=== PATIENT | female | born 1945 | race Two or more races ===

== ENCOUNTER 2023-06-13 17:43 | Inpatient (IN) | payer OTHER ==
[~2023-06-13] VITALS: Ht 165.1 cm; Wt 87.9 kg
[2023-06-13 18:16] LABS: Basophils # (auto) 0 10 ^3/uL (0-0.2); Basophils % (auto) 0.3 % (0.0-2.0); Eosinophils # (auto) 0.2 10 ^3/uL (0-0.8); Eosinophils % (auto) 2.5 % (0.0-7.0); Hematocrit 39.5 % (36.0-46.0); Hemoglobin 12.7 g/dL (12.2-16.2); Lymphocytes # (auto) 1.9 10 ^3/uL (0.4-5.4); Mean Corpuscular Hemoglobin 28.5 pg (28.0-32.0); Mean Corpuscular Hgb Conc. 32.1 g/dL (32.0-36.0); Mean Corpuscular Volume 88.8 fL (80.0-100.0); Monocytes # (auto) 0.4 10 ^3/uL (0-1.3); Monocytes % (auto) 4.9 % (0.0-12.0); Neutrophils # (auto) 6.4 10 ^3/uL (1.6-8.6); Neutrophils % (auto) 71.3 % (37.0-80.0); Nucleated Red Blood Cells % 0.1 %; Red Blood Cells 4.45 10^6/uL (4.0-5.20); Red Cell Distribution Width 14.6 % (11.8-14.3); White Blood Cell 8.9 10^3/uL (4.4-10.8)
[2023-06-13 18:33] LABS: Alanine Aminotransferase 132 U/L (7-40); Albumin 4.4 g/dL (3.2-4.8); Alkaline Phosphatase 103 U/L (46-116); Anion Gap 3 (5-15); Aspartate Aminotransferase 49 U/L (13-40); BUN/Creatinine Ratio 13.7 (10.0-20.0); Bilirubin, Total 0.5 mg/dL (0.2-1.0); Blood Urea Nitrogen 13 mg/dL (9-23); Calcium 10.2 mg/dL (8.5-10.1); Carbon Dioxide 30 mmol/L (20-30); Chloride 109 mmol/L (98-107); Glucose 179 mg/dL (74-106); Potassium 4.7 mmol/L (3.5-5.1); Sodium 142 mmol/L (136-145); Total Protein 6.7 g/dL (5.7-8.2)
[2023-06-13 19:12] LABS: Urine Bacteria FEW /hpf (None Seen); Urine Blood Negative /uL (Negative); Urine Clarity Clear (Clear); Urine Color Colorless (Yellow); Urine Protein, UAD Negative (Negative); Urine Specific Gravity 1.004 (1.001-1.035); Urine Urobilinogen Normal (Negative); Urine WBC 3 /hpf (0 - 5); Urine pH 7.5 (5.0-8.0)
[2023-06-13] MEDS ORDERED: dilTIAZem 25 MG/5 ML VIAL IV ONE (19:15)
[2023-06-13] MEDS ORDERED: ONDANSETRON HCL 4 MG/2 ML VIAL IV PRN (23:00)
[2023-06-13] MEDS ORDERED: ACETAMINOPHEN 325 MG TAB PO PRN (23:00)
[2023-06-13] MEDS ORDERED: MORPHINE SULFATE INJ 2 MG/ml SYRG IV PRN ×2 (23:00)
[2023-06-13] MEDS ORDERED: DOCUSATE SOD 100 MG CAP PO PRN (23:00)
[2023-06-13] MEDS ORDERED: NITROGLYCERIN 0.4 MG SL TAB SL PRN (23:00)
[2023-06-13 23:41] VITALS: PULSE 150; RESP 16; O2SAT 93
[2023-06-14] MEDS: METOPROLOL TARTRATE 1MG/1ML-5ML VIAL IV PRN ×2 (02:22→08:00)
[2023-06-14 05:18] LABS: Basophils # (auto) 0 10 ^3/uL (0-0.2); Basophils % (auto) 0.3 % (0.0-2.0); Eosinophils # (auto) 0.2 10 ^3/uL (0-0.8); Hematocrit 39.3 % (36.0-46.0); Hemoglobin 12.8 g/dL (12.2-16.2); Lymphocytes # (auto) 1.8 10 ^3/uL (0.4-5.4); Mean Corpuscular Hemoglobin 29.2 pg (28.0-32.0); Mean Corpuscular Hgb Conc. 32.6 g/dL (32.0-36.0); Mean Corpuscular Volume 89.6 fL (80.0-100.0); Monocytes # (auto) 0.5 10 ^3/uL (0-1.3); Monocytes % (auto) 5.5 % (0.0-12.0); Neutrophils # (auto) 6.5 10 ^3/uL (1.6-8.6); Neutrophils % (auto) 72.2 % (37.0-80.0); Red Blood Cells 4.38 10^6/uL (4.0-5.20)
[2023-06-14 05:39] LABS: Alanine Aminotransferase 112 U/L (7-40); Albumin 4.2 g/dL (3.2-4.8); Alkaline Phosphatase 89 U/L (46-116); Anion Gap 3 (5-15); Aspartate Aminotransferase 36 U/L (13-40); BUN/Creatinine Ratio 16.1 (10.0-20.0); Blood Urea Nitrogen 14 mg/dL (9-23); Calcium 9.5 mg/dL (8.7-10.4); Carbon Dioxide 30 mmol/L (20-30); Chloride 110 mmol/L (98-107); Glucose 142 mg/dL (74-106); Potassium 4.4 mmol/L (3.5-5.1); Sodium 143 mmol/L (136-145)
[2023-06-14 05:40] LABS: Bilirubin, Total 0.7 mg/dL (0.2-1.0); Total Protein 6.4 g/dL (5.7-8.2)
[2023-06-14] MEDS: HYDROcodone-ACET 5/325MG TAB PO PRN (06:06)
[2023-06-14 07:20] VITALS: PULSE 141; RESP 16; O2SAT 96
[2023-06-14] MEDS: ENOXAPARIN SOD 100 MG/1 ML SYRINGE SC SCH ×2 (09:42→21:30)
[2023-06-14] MEDS: AMIODARONE 450mg/250ml AE 250 ML IV SCH ×2 (09:43→17:47)
[2023-06-14] MEDS ORDERED: ENOXAPARIN SOD 40 MG/0.4 ML SYRINGE SC SCH (10:00)
[2023-06-14] MEDS ORDERED: ASPI-325 PO (12:15)
[2023-06-14] MEDS ORDERED: LOSA50TA46 PO (12:15)
[2023-06-14] MEDS ORDERED: ATOR20TA50 PO (12:15)
[2023-06-14] MEDS ORDERED: DEXTROSE (50%) 50ML SYRG IV PRN (13:30)
[2023-06-14] MEDS ORDERED: FUROSEMIDE 40 MG/4 ML VIAL IV SCH (13:30)
[2023-06-14] MEDS: InsuLIN REG 1unit/0.01ml Soln (100units/ml) SC SCH ×2 (17:00→21:30)
[2023-06-14] MEDS: ACCU-CHEK COMFORT CURVE STRIP VI SCH ×2 (17:00→21:30)
[2023-06-14 17:13] LABS: COVID19 ANTIGEN SOFIA FIA NEGATIVE (NEGATIVE)
[2023-06-14] MEDS: FUROSEMIDE 40 MG/4 ML VIAL IV SCH (18:00)
[2023-06-14 19:53] VITALS: PULSE 126; RESP 22; O2SAT 94
[2023-06-14 23:00] VITALS: BP 124/77; PULSE 123; RESP 19; RESP 20; TEMP 98; O2SAT 93
[2023-06-14 23:21] VITALS: BP 124/77; PULSE 123; RESP 20; TEMP 98; O2SAT 93
[2023-06-15] MEDS: AMIODARONE 450mg/250ml AE 250 ML IV SCH ×2 (02:12→07:45)
[2023-06-15 05:00] VITALS: BP 115/86; PULSE 111; RESP 20; TEMP 97.4; O2SAT 91
[2023-06-15] MEDS: ACCU-CHEK COMFORT CURVE STRIP VI SCH ×4 (06:07→22:03)
[2023-06-15] MEDS: FUROSEMIDE 40 MG/4 ML VIAL IV SCH ×2 (06:13→17:46)
[2023-06-15] MEDS: InsuLIN REG 1unit/0.01ml Soln (100units/ml) SC SCH ×4 (06:19→21:44)
[2023-06-15 06:47] LABS: Calcium 9.3 mg/dL (8.7-10.4); Chloride 107 mmol/L (98-107); Potassium 3.7 mmol/L (3.5-5.1); Sodium 140 mmol/L (136-145)
[2023-06-15 06:48] LABS: Anion Gap 5 (5-15); Carbon Dioxide 28 mmol/L (20-30)
[2023-06-15 06:53] LABS: BUN/Creatinine Ratio 16.3 (10.0-20.0); Blood Urea Nitrogen 13 mg/dL (9-23); Glucose 129 mg/dL (74-106)
[2023-06-15 08:00] VITALS: PULSE 120; PULSE 121; RESP 16; TEMP 98.9; O2SAT 92
[2023-06-15 09:00] VITALS: BP 132/84; PULSE 121; RESP 16; TEMP 98.1; O2SAT 93
[2023-06-15] MEDS ORDERED: ASPirin-EC 81 mg tab PO SCH (10:00)
[2023-06-15] MEDS: ENOXAPARIN SOD 100 MG/1 ML SYRINGE SC SCH ×2 (10:18→21:43)
[2023-06-15] MEDS: ATORVASTATIN 20 MG TAB PO SCH (10:18)
[2023-06-15] MEDS: PANTOPRAZOLE 40 MG TAB PO SCH (10:18)
[2023-06-15] MEDS: LOSARTAN POTASSIUM 50 MG TAB PO SCH (10:18)
[2023-06-15] MEDS ORDERED: AMIODARONE 450mg/250ml AE 250 ML IV SCH ×2 (11:30→21:30)
[2023-06-15 17:24] VITALS: BP 139/85; PULSE 97; RESP 20; TEMP 98.3; O2SAT 91
[2023-06-15 20:00] VITALS: PULSE 107
[2023-06-15 22:00] VITALS: BP 137/72; PULSE 103; RESP 20; TEMP 98.4; O2SAT 96
[2023-06-16] VITALS (12 sets, daily range): BP systolic 105–146; BP diastolic 55–73; PULSE 64–117; RESP 16–24; TEMP 98.1–98.8; O2SAT 94–100
[2023-06-16] MEDS: FUROSEMIDE 40 MG/4 ML VIAL IV SCH ×3 (06:21→18:05)
[2023-06-16] MEDS: ACCU-CHEK COMFORT CURVE STRIP VI SCH ×4 (06:30→20:58)
[2023-06-16] MEDS: InsuLIN REG 1unit/0.01ml Soln (100units/ml) SC SCH ×4 (06:31→20:59)
[2023-06-16] MEDS ORDERED: AMIODARONE 450mg/250ml AE 250 ML IV SCH (06:45)
[2023-06-16 06:48] LABS: INR 1.18 (0.9-1.15); Partial Thromboplastin Time 33.3 SEC (24.5-34.5); Prothrombin Time 12.3 sec (9.3-11.8)
[2023-06-16] MEDS ORDERED: MIDAZOLAM HCL 2MG/2ML 2ml VIAL (1mg/ml) IV ONE (10:45)
[2023-06-16] MEDS ORDERED: LIDOCAINE VISCOUS 2% 15ML UD PO ONE (10:45)
[2023-06-16] MEDS ORDERED: fentaNYL CITRATE 100 MCG/2 ML VL IV ONE (10:45)
[2023-06-16] MEDS: ENOXAPARIN SOD 100 MG/1 ML SYRINGE SC SCH (10:46)
[2023-06-16] MEDS: LOSARTAN POTASSIUM 50 MG TAB PO SCH (10:47)
[2023-06-16] MEDS: ATORVASTATIN 20 MG TAB PO SCH (10:47)
[2023-06-16] MEDS: PANTOPRAZOLE 40 MG TAB PO SCH (10:47)
[2023-06-16] MEDS: HYDROcodone-ACET 5/325MG TAB PO PRN (15:08)
[2023-06-16] MEDS: AMIODARONE HCL 200 MG TAB PO SCH (20:58)
[2023-06-16] MEDS: APIXABAN 5 MG TAB PO SCH (20:58)
[2023-06-17 05:00] VITALS: BP 116/47; PULSE 72; RESP 22; TEMP 98.1; O2SAT 98
[2023-06-17] MEDS: ACCU-CHEK COMFORT CURVE STRIP VI SCH ×2 (06:43→11:30)
[2023-06-17] MEDS: HYDROcodone-ACET 5/325MG TAB PO PRN (06:44)
[2023-06-17] MEDS: InsuLIN REG 1unit/0.01ml Soln (100units/ml) SC SCH ×2 (06:46→11:30)
[2023-06-17 08:00] VITALS: BP 127/61; PULSE 64; PULSE 69; RESP 16; TEMP 98; O2SAT 92
[2023-06-17] MEDS: PANTOPRAZOLE 40 MG TAB PO SCH (08:46)
[2023-06-17] MEDS: APIXABAN 5 MG TAB PO SCH (08:47)
[2023-06-17] MEDS: ATORVASTATIN 20 MG TAB PO SCH (08:47)
[2023-06-17] MEDS: LOSARTAN POTASSIUM 50 MG TAB PO SCH (08:47)
[2023-06-17] MEDS: AMIODARONE HCL 200 MG TAB PO SCH (08:47)
[2023-06-17 12:14] VITALS: BP 140/61; PULSE 64; RESP 16; TEMP 97.7; O2SAT 94
[2023-06-17] MEDS ORDERED: ATOR20TA50 PO (14:37)
[2023-06-17] MEDS ORDERED: APIX5TAB PO (14:37)
[2023-06-17] MEDS ORDERED: AMIO200T33 PO (14:37)
[2023-06-17] MEDS ORDERED: LOSA50TA46 PO (14:37)
[2023-06-17] MEDS ORDERED: HYALURONIDASE 150 UNIT/1 ML SUBCUT ONE (14:45)
[2023-06-17 15:24] VITALS: BP 127/61; PULSE 114; TEMP 36.5
[2023-06-17 17:00] VITALS: BP 131/49; PULSE 65; RESP 16; TEMP 98.3; O2SAT 100
== END 2023-06-17 17:00 | disposition home or self-care (01) | DRG 291 ==
LOC: ER 17:43 → TELE 22:51 → TELE-CENTR 22:51
PROVIDERS: ADMIT Internal Medicine; ATTEND Internal Medicine
PROC: 5A2204Z Restoration of Cardiac Rhythm, Single (ICD-10-PCS; principal; 2023-06-16)
PROC: B24BZZ4 Ultrasonography of Heart with Aorta, Transesophageal (ICD-10-PCS; 2023-06-16)
DX: I11.0 Hypertensive heart disease with heart failure (principal); I50.31 Acute diastolic (congestive) heart failure; I48.20 Chronic atrial fibrillation, unspecified; Z68.36 Body mass index [BMI] 36.0-36.9, adult; E11.42 Type 2 diabetes mellitus with diabetic polyneuropathy; Z20.822 Contact with and (suspected) exposure to COVID-19; E78.5 Hyperlipidemia, unspecified; F17.210 Nicotine dependence, cigarettes, uncomplicated; I25.10 Atherosclerotic heart disease of native coronary artery without angina pectoris; R01.1 Cardiac murmur, unspecified; Z96.653 Presence of artificial knee joint, bilateral; E66.01 Morbid (severe) obesity due to excess calories; K76.0 Fatty (change of) liver, not elsewhere classified; I87.2 Venous insufficiency (chronic) (peripheral); Z79.82 Long term (current) use of aspirin; Z68.32 Body mass index [BMI] 32.0-32.9, adult; Z82.49 Family history of ischemic heart disease and other diseases of the circulatory system; Z79.01 Long term (current) use of anticoagulants; Z79.899 Other long term (current) drug therapy
CPT/HCPCS: 36415; 71045; 71275; 80048; 80053; 81001; 82962; 83735; 83880; 84443; 84484; 85025; 85379; 85610; 85730; 86850; 86900; 86901; 87426; 92960; 93005; 93306; 93312; 99152; 99291; G0378; J1815; J2250; J3470

== ENCOUNTER → 2023-09-22 | Outpatient (CLI) | payer OTHER ==
[~2023-09-22] VITALS: Ht 165.1 cm; Wt 102.1 kg
[~2023-09-22] MED LIST: AMIO200T33 PO; APIX5TAB PO; ATOR20TA50 PO; LOSA-534 PO
[2023-09-22] MEDS: ADENOSINE 86 MG in GIVE UN-DILUTED 0 ML IV ONE (09:37)
== END | disposition home or self-care (01) ==
LOC: XYW 08:13
PROVIDERS: ATTEND Specialist
DX: I10 Essential (primary) hypertension (principal); I47.10 Supraventricular tachycardia, unspecified; I27.20 Pulmonary hypertension, unspecified; E11.9 Type 2 diabetes mellitus without complications; E78.5 Hyperlipidemia, unspecified
CPT/HCPCS: 78452; 93017; A9500; J0153